=== PATIENT | female | born 1950 | race Asian ===

== ENCOUNTER 2018-04-22 06:15 | Outpatient (CLI) | payer OTHER, MEDICAID ==
[~2018-04-22] VITALS: Ht 157.5 cm; Wt 67.1 kg
[2018-04-22] MEDS ORDERED: CIPROFLOXACIN LACT 400 MG/D5W 200 ML IV ONE (07:00)
== END 2018-04-22 07:40 | disposition home or self-care (01) ==
LOC: SLB 06:15 → SDS 06:15 → SMU 06:15 → SDS 07:40 → SLB 07:40 → EDSTATUS 09:00
PROVIDERS: ATTEND Otolaryngology
DX: D48.9 Neoplasm of uncertain behavior, unspecified (principal); Z53.9 Procedure and treatment not carried out, unspecified reason
CPT/HCPCS: J0744